=== PATIENT | male | born 1965 | race American Indian/Alaskan Native ===

== ENCOUNTER 2017-03-15 08:15 | Emergency (ER) | payer OTHER ==
[2017-03-15 08:23] VITALS: BMI 29.0
[2017-03-15 08:25] VITALS: BP 117/78; PULSE 69; RESP 19; TEMP 98.5; O2SAT 99
--- NOTE | 2017-03-15 09:19 | ED PDOC ---
HPI: CCC, URI, Sore Throat Time Seen by Provider: 03/15/17 08:41 Chief Complaint (Nursing): ENT Problem Chief Complaint (Provider): sore throat History Per: Patient History/Exam Limitations: no limitations Have you had recent travel within the past 21 days to any of the following countries: [place], [place], [place] or [place]?: No Onset/Duration Of Symptoms: Days (x2) Additional Complaint(s): Ramesh Felton is a 52 year old male, with a previous medical history of hypertension, who presents to the ED with complaints of left sided throat pain which radiates to his left ear ongoing for 2 days. Patient denies any shortness of breath, fever or swelling. PMD: none provided Past Medical History Reviewed: Historical Data, Nursing Documentation, Vital Signs Vital Signs: Last Vital Signs Temp 98.5 F 03/15/17 08:23 Pulse 69 03/15/17 08:23 Resp 19 03/15/17 08:23 BP 117/78 03/15/17 08:23 Pulse Ox 99 03/15/17 09:21 - Medical History PMH: HTN - Surgical History Surgical History: Appendectomy - Family History Family History: States: Unknown Family Hx - Social History Current smoker - smoking cessation education provided: Yes - Home Medications Home Medications: Ambulatory Orders Medication Instructions Recorded Amoxicillin 1,000 mg PO DAILY #6 tablet 03/15/17 Naproxen [Naprosyn] 500 mg PO BID PRN #15 tablet 03/15/17 - Allergies Allergies/Adverse Reactions: Allergies Allergy/AdvReac Type Severity Reaction Status Date / Time No Known Allergies Allergy Verified 03/15/17 08:35 Review of Systems ROS Statement: Except As Marked, All Systems Reviewed And Found Negative Constitutional: Negative for: Fever ENT: Positive for: Ear Pain (left ), Throat Pain. Negative for: Throat Swelling Physical Exam - Reviewed Nursing Documentation Reviewed: Yes Vital Signs Reviewed: Yes - Physical Exam Appears: Positive for: Well, Non-toxic, No Acute Distress Head Exam: Positive for: ATRAUMATIC, NORMAL INSPECTION, NORMOCEPHALIC Skin: Positive for: Normal Color, Warm, Dry ENT: Positive for: Pharyngeal Erythema, Tonsillar Exudate (L), Tonsillar Swelling (Minimal L), Other (uvula midline ) Neck: Positive for: Normal, Painless ROM, Supple Cardiovascular/Chest: Positive for: Regular Rate, Rhythm Respiratory: Positive for: CNT, Normal Breath Sounds Neurologic/Psych: Positive for: Alert - ECG O2 Sat by Pulse Oximetry: 99 (RA) Pulse Ox Interpretation: Normal Medical Decision Making Medical Decision Making: Initial Impression: WESTON Bateman Initial Plan: * Rapid strep * Motrin 600 mg PO * reevaluation Scribe Attestation: Documented by Rosie Quigley, acting as a scribe for Rosie Vizcarra MD. Provider Scribe Attestation: All medical record entries made by the Scribe were at my direction and personally dictated by me. I have reviewed the chart and agree that the record accurately reflects my personal performance of the history, physical exam, medical decision making, and the department course for this patient. I have also personally directed, reviewed, and agree with the discharge instructions and disposition. Disposition - Clinical Impression Clinical Impression: Pharyngitis - Patient ED Disposition Is Patient to be Admitted: No - Disposition Referrals: [facility] [Outside] Disposition: Routine/Home Disposition Time: 09:49 Condition: STABLE Prescriptions: Amoxicillin 1,000 mg PO DAILY #6 tablet Naproxen [Naprosyn] 500 mg PO BID PRN #15 tablet PRN Reason: Pain, Moderate (4-7) Instructions: Pharyngitis (ED)
== END 2017-03-15 10:10 | disposition home or self-care (01) ==
LOC: MERGE 08:15 → H.ER 08:15
DX: J02.9 Acute pharyngitis, unspecified (principal); I10 Essential (primary) hypertension

== ENCOUNTER 2017-08-10 09:10 | Emergency (ER) | payer OTHER ==
[2017-08-10 09:23] VITALS: BP 136/78; PULSE 83; RESP 20; TEMP 97.7; BMI 35.0
[2017-08-10 10:07] VITALS: O2SAT 98
--- NOTE | 2017-08-10 11:21 | ED PDOC ---
HPI: General Adult Time Seen by Provider: 08/10/17 10:15 Chief Complaint (Nursing): Lower Extremity Problem/Injury History Per: Patient Additional Complaint(s): Pt. states earlier today while at work he twisted his R ankle coming off a curb. Reports pain is localized to the inner portion of the ankle and worsens with dorsiflexion of the ankle. Denies numbness, tingling, other injury. Past Medical History Reviewed: Historical Data, Nursing Documentation, Vital Signs Vital Signs: Last Vital Signs Temp 97.7 F 08/10/17 09:22 Pulse 83 08/10/17 09:22 Resp 20 08/10/17 09:22 BP 136/78 08/10/17 09:22 Pulse Ox 98 08/10/17 10:05 - Medical History PMH: HTN - Surgical History Surgical History: Appendectomy - Family History Family History: States: Diabetes, Hypertension - Home Medications Home Medications: Ambulatory Orders Medication Instructions Recorded Naproxen 500 mg PO Q12 #20 tab 07/20/14 Acetaminophen [Tylenol] 325 mg PO Q6 #20 tablet 11/15/15 Albuterol HFA [Ventolin HFA 90 0.09 mg IH Q4 #1 puff 11/15/15 mcg/actuation (8 g)] Azithromycin [Zithromax] 250 mg PO DAILY #6 tab 11/15/15 Guaifenesin/Pseudoephedrne HCl 1 each PO BID #20 tab.er.12h 11/15/15 [Mucinex D ER Tablet] Azithromycin [Zithromax] 250 mg PO DAILY #6 tablet 02/24/16 Ibuprofen 600 mg PO Q6 PRN #20 tablet 03/25/16 Cyclobenzaprine [Cyclobenzaprine 10 mg PO TID #15 tab 10/17/16 HCl] Amoxicillin 1,000 mg PO DAILY #6 tablet 03/15/17 Naproxen [Naprosyn] 500 mg PO BID PRN #15 tablet 03/15/17 - Allergies Allergies/Adverse Reactions: Allergies Allergy/AdvReac Type Severity Reaction Status Date / Time beans Allergy ANAPHYLAXIS Uncoded 10/17/16 04:02 Review of Systems ROS Statement: Except As Marked, All Systems Reviewed And Found Negative Physical Exam - Physical Exam Appears: Positive for: Well, Non-toxic, No Acute Distress Skin: Positive for: Normal Color, Warm. Negative for: Rash Pulses-Dorsalis Pedis (L): 2+ Pulses-Dorsalis Pedis (R): 2+ Extremity: Positive for: Other (R medial malleolus with mild tenderness and swelling; R ankle without deformity; no foot, knee, or leg tenderness, swelling. ) Neurologic/Psych: Positive for: Alert, Oriented - ECG O2 Sat by Pulse Oximetry: 98 - Radiology X-Ray: Interpreted by Me (R ankle x-ray ) X-Ray Interpretation: No Acute Disease - Progress ED Course And Treament: Pt. offered analgesics but refused. R ankle x-ray ordered. 1122 R ankle immobilized in ankle aircast splint by mine technician. Crutches provided. Work note will be given. Disposition - Clinical Impression Clinical Impression: Ankle injury - Patient ED Disposition Is Patient to be Admitted: No - Disposition Referrals: Podiatry Clinic [Outside] Disposition: Routine/Home Disposition Time: 11:24 Condition: STABLE Additional Instructions: Take Tylenol or Motrin at home for pain. Follow up with podiatry for further evaluation. Instructions: Ankle Sprain (ED), Ankle Stirrup Splint (ED), Crutch Instructions (ED), RICE Therapy (ED) Forms: [facility] (Telugu), [facility] ED School/Work Excuse Print Language: TRISTANIAN
[2017-08-10] MEDS ORDERED: Naproxen 500 MG TAB PO ONE ×2 (12:02→12:03)
--- NOTE | 2017-08-10 13:02 | RAD ---
PROCEDURE: Right Ankle Radiographs. HISTORY: trauma COMPARISON: None FINDINGS: BONES: There is no acute displaced fracture or bone destruction. Bone alignment is normal. There is periarticular bone demineralization. 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 There is mild degenerative osteoarthrosis in the tibiotalar joint. SOFT TISSUES: Normal. OTHER FINDINGS: None. IMPRESSION: No acute displaced fracture or dislocation.
== END 2017-08-10 12:15 | disposition home or self-care (01) ==
LOC: H.ER 09:10
DX: S99.911A Unspecified injury of right ankle, initial encounter (principal); X50.9XXA Other and unspecified overexertion or strenuous movements or postures, initial encounter; Y92.89 Other specified places as the place of occurrence of the external cause; I10 Essential (primary) hypertension

== ENCOUNTER 2017-12-30 22:49 | Emergency (ER) | payer MEDICAID, OTHER ==
[2017-12-30 22:49] VITALS: BMI 35.0
[2017-12-30 22:55] VITALS: RESP 18; O2SAT 98
--- NOTE | 2017-12-30 23:14 | ED PDOC ---
Lower Extremity Pain/Injury Time Seen by Provider: 12/30/17 23:00 Chief Complaint (Nursing): Lower Extremity Problem/Injury History Per: Patient Additional Complaint(s): 52-year-old male with past medical history of asthma, emergency room complaining of atraumatic pain to the dorsal aspect of his left low which started 2 days ago. 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 He recalls no trauma or injury, reports no fever, chest pain, shortness of breath, swelling, recent travel, history of DVT, recent hospitalization or surgery. Otherwise has no additional complaints. Past Medical History Vital Signs: Last Vital Signs Temp 98.6 F 12/30/17 22:51 Pulse 103 H 12/30/17 22:51 Resp 18 12/30/17 22:51 BP 158/93 H 12/30/17 22:51 Pulse Ox 98 12/30/17 22:51 - Medical History PMH: HTN - Surgical History Surgical History: Appendectomy - Family History Family History: States: No Known Family Hx, Diabetes, Hypertension - Home Medications Home Medications: Ambulatory Orders Medication Instructions Recorded Naproxen 500 mg PO Q12 #20 tab 07/20/14 Acetaminophen [Tylenol] 325 mg PO Q6 #20 tablet 11/15/15 Albuterol HFA [Ventolin HFA 90 0.09 mg IH Q4 #1 puff 11/15/15 mcg/actuation (8 g)] Azithromycin [Zithromax] 250 mg PO DAILY #6 tab 11/15/15 Guaifenesin/Pseudoephedrne HCl 1 each PO BID #20 tab.er.12h 11/15/15 [Mucinex D ER Tablet] Azithromycin [Zithromax] 250 mg PO DAILY #6 tablet 02/24/16 Ibuprofen 600 mg PO Q6 PRN #20 tablet 03/25/16 Cyclobenzaprine [Cyclobenzaprine 10 mg PO TID #15 tab 10/17/16 HCl] Amoxicillin 1,000 mg PO DAILY #6 tablet 03/15/17 Naproxen [Naprosyn] 500 mg PO BID PRN #15 tablet 03/15/17 - Allergies Allergies/Adverse Reactions: Allergies Allergy/AdvReac Type Severity Reaction Status Date / Time beans Allergy ANAPHYLAXIS Uncoded 10/17/16 04:02 Review of Systems Constitutional: Negative for: Fever, Weakness, Malaise Cardiovascular: Negative for: Chest Pain, Palpitations, Edema Respiratory: Positive for: Cough (started today), Wheezing (today). Negative for: Shortness of Breath Gastrointestinal: Negative for: Vomiting, Abdominal Pain, Diarrhea Genitourinary Male: Negative for: Dysuria, Frequency, Hematuria Musculoskeletal: Positive for: Leg Pain. Negative for: Neck Pain, Back Pain Skin: Negative for: Rash, Lesions, Jaundice Physical Exam - Physical Exam Comments: GENERAL APPEARANCE: Patient is awake, alert, oriented x 3, in mild painful distress. Speaking in full sentences, breathing easy and unlabored. SKIN: Warm, dry; (-) cyanosis. EYES: (-) conjunctival pallor. ENMT: Mucous membranes moist. Airway patent: (-) stridor. Pharynx: (-) swelling, (-) erythema. NECK: (-) tenderness, (-) stiffness, (-) lymphadenopathy. CHEST AND RESPIRATORY: (+) expiratory wheezing to the R lung; (-) rales, (-) rhonchi, (-) rub; breath sounds equal bilaterally. HEART AND CARDIOVASCULAR: (-) irregularity; (-) murmur, (-) gallop. ABDOMEN AND GI: Soft; (-) tenderness. EXTREMITIES: (+) tenderness to the dorsal aspect of the left lower leg, (+) FROM, (-) deformity, (-) edema, (+) distal pulses. NEURO AND PSYCH: Mental status as above; (-) focal findings. - ECG O2 Sat by Pulse Oximetry: 98 Medical Decision Making Medical Decision Making: Impression : L leg pain, r/o DVT, asthma exacerbation Plan: -- Labs -- IV -- XR L tib-fib -- Toradol IV -- Duonebs -- Reassess and disposition -- Doppler US LLE Patient went to US. Labs, XR and US results pending. Case endorsed to SOLA Smart at [phone] pending labs, XR, USm re-evaluation and final disposition. Disposition - Clinical Impression Clinical Impression: Asthma, Left leg pain - Patient ED Disposition Is Patient to be Admitted: Transfer of Care (Case endorsed to SOLA Smart pending labs, XR, USm re-evaluation and final disposition.) - Disposition Disposition: Transfer of Care Disposition Time: 00:00 Condition: UNKNOWN Forms: [facility] (Turkish) - PA / DIRECTOR OF DONOR RELATIONS / Resident Statement MD/DO has reviewed & agrees with the documentation as recorded.
--- NOTE | 2017-12-30 23:56 | ED PDOC ---
- Laboratory Results Result Diagrams: 12/30/17 00:10 12/30/17 00:10 - ECG O2 Sat by Pulse Oximetry: 98 (RA) Pulse Ox Interpretation: Normal Medical Decision Making Medical Decision Makin Case endorsed to continuity writer, Audra Smart PA-C, due to shift change. Pertinent details reviewed. Patient pending lab results, U/S results, XR results, re- evaluation, and further disposition. 0020 Patient returned from U/S without incident. 0025 US reviewed, radiology report follows EXAM: US Duplex Left Lower Extremity Veins CLINICAL HISTORY: 52 years old, male; Pain; Leg, lower; Left; Patient HX: Pain at below knee extends to prx-mid low area. Lt leg; Additional info: Pain, R/O dvt TECHNIQUE: Real-time duplex ultrasound scan of the left lower extremity veins integrating B -mode twodimensional vascular structure, Doppler spectral analysis, color flow Doppler imaging and compression. COMPARISON: No relevant prior studies available. FINDINGS: Deep veins: Unremarkable. No DVT in the visualized common femoral, femoral, proximal deep femoral or popliteal veins. The veins demonstrate normal color flow, are normally compressible, with normal phasic flow and/or augmentation response. Superficial veins: Unremarkable. No thrombus in the visualized great saphenous vein. Soft tissues: Adjacent complex fluid collections medial aspect left popliteal knee and calf. Collections measure 5.4 x 1.6 x 5.4 and 3.1 x 1.0 x 1.8 CM. IMPRESSION: No evidence of venous thrombosis. Complex soft tissue fluid collections, as above. Thank you for allowing us to participate in the care of your patient. Dictated and Authenticated by: Ilya Madden MD 12/31/2017 12:06 AM Eastern Time ([place] & [place]) 0040 XR Tib/Fib: (-) fracture (+) arthritic changes as read by Bing ONEAL Patient notified a Radiologist will review the ED reading if any change in treatment is needed we will contact you. 0115 On re-evaluation, patient reports improvement of symptoms, denies any SOB at present. On exam, patient remains AAOx3, in no acute distress. Lungs clear to auscultation, cardiac RRR, abdomen soft, non-tender, repeat neuro exam shows no focal findings. Repeat BP:141/85, Repeat HR: 77, Repeat O2: 98% RA. Lei bandage applied to knee. NV intact after placement. RICE encouraged. Lab results reviewed, Diagnostic results d/w the patient in great detail. Diagnosis of acute knee pain, wheezing d/w the patient. Based on history, exam and diagnostic results, plan will be for outpatient follow up. Patient instructed to follow-up with pmd / referral provided / the clinic in 1- 2 days without fail. Advised to take medication as prescribed. Return to the emergency room at any time for any new or worsening symptoms. Patient states he fully agrees with and understands discharge instructions. States that he agrees with the plan and disposition. Verbalized and repeated discharge instructions and plan. I have given the patient opportunity to ask any additional questions. Disposition Counseled Patient/Family Regarding: Studies Performed, Diagnosis, Need For Followup, Rx Given - Clinical Impression Clinical Impression: Asthma, Left leg pain, Wheezing, Knee pain - POA Present On Arrival: None - Disposition Referrals: Lorraine Coronel MD [Staff Provider] - Disposition: Routine/Home Disposition Time: 01:14 Condition: FAIR Prescriptions: Albuterol HFA [Ventolin HFA 90 mcg/actuation (8 g)] 1 puff IH Q4 #1 inhaler Meloxicam [Mobic] 15 mg PO DAILY #14 tab Instructions: Asthma in Adults, Muscle and Bone Pain (DC), Knee Pain Forms: [facility] (Vietnamese) Print Language: SINHALA
[2017-12-31 00:32] LABS: BASO # 0.1 K/uL (0.0-0.2); BASO % 1.2 % (0.0-2.0); EOS # 0.3 K/uL (0.0-0.7); EOS % 5.7 % (0.0-4.0); HEMOGLOBIN 14.1 g/dL (12.0-18.0); LYMPH # 2.4 K/uL (1.0-4.3); LYMPH % 39.8 % (20.0-40.0); MEAN CELL VOLUME 79.9 fl (80.0-94.0); MEAN CORPUSCULAR HEMOGLOBIN 26.6 pg (27.0-31.0); MEAN CORPUSCULAR HGB CONC 33.3 g/dL (33.0-37.0); MEAN PLATELET VOLUME 7.7 fl (7.2-11.7); MONO # 0.5 K/uL (0.0-0.8); MONO % 9.1 % (0.0-10.0); NEUT # 2.7 K/uL (1.8-7.0); NEUT % 44.2 % (50.0-75.0); NRBC % 0.1 % (0.0-0.0); RBC 5.31 Mil/uL (4.40-5.90); RED CELL DISTRIBUTION WIDTH 15.6 % (11.5-14.5)
[2017-12-31 00:41] LABS: ALB/GLOB RATIO 0.9 (1.0-2.1); ALBUMIN 3.6 g/dL (3.5-5.0); ALT/SGPT 28 U/L (21-72); AST/SGOT 29 U/L (17-59); BLOOD UREA NITROGEN 8 mg/dl (9-20); GFR AFRICAN-AMERICAN > 60; GFR NON-AFRICAN AMERICAN > 60
[2017-12-31] MEDS ORDERED: Albuterol-Ipratrop 3 mg / 0.5 (3 ml) UD ONE (00:41)
[2017-12-31] MEDS: Albuterol-Ipratrop 3 mg / 0.5 (3 ml) UD IH SCH ×2 (00:43→00:58)
[2017-12-31 01:23] VITALS: BP 141/85; PULSE 77; TEMP 98.2
--- NOTE | 2017-12-31 09:37 | US ---
HISTORY: pain, r/o dvt . PRIORS: None. FINDINGS: 2-D, color and duplex Doppler analysis of the lower extremity venous circulation using routine protocol from the femoral veins through the popliteal veins. Venous compressibility: Normal. Flow and augmentation patterns: Normal. Visualized veins upper third of calf: Normal. Vicente cyst: None. Other: Adjacent complex fluid collections in the medial aspect of the left knee and measuring 5.4 x 1.6 x 5.4 cm and 3.1 x 1.0 x 1.8 cm. IMPRESSION: No sonographic or Doppler evidence for DVT in left lower extremity. Complex soft tissue fluid collections as described above.
--- NOTE | 2017-12-31 09:38 | RAD ---
PROCEDURE: Radiographs of the left tibia and fibula. HISTORY: pain COMPARISON: None available. TECHNIQUE: Frontal and lateral views obtained. FINDINGS: BONES: No acute fracture. JOINT SPACES: Degenerative changes. OTHER FINDINGS: Pes planus. IMPRESSION: No demonstrated fracture dislocation. Degenerative changes.
== END 2017-12-31 02:19 | disposition home or self-care (01) ==
LOC: H.ER 22:49
DX: J45.909 Unspecified asthma, uncomplicated (principal); R06.2 Wheezing; M79.605 Pain in left leg
CPT/HCPCS: 73590; 80053; 85025; 93971; 96374; 99285; J1885

== ENCOUNTER 2018-02-04 04:30 | Emergency (ER) | payer MEDICAID ==
[2018-02-04 04:47] VITALS: BMI 44.4
[2018-02-04 04:50] VITALS: TEMP 98.1
[2018-02-04 06:10] LABS: BASO # 0.1 K/uL (0.0-0.2); BASO % 1.2 % (0.0-2.0); EOS # 0.4 K/uL (0.0-0.7); EOS % 6.5 % (0.0-4.0); HEMOGLOBIN 14.5 g/dL (12.0-18.0); LYMPH # 2.5 K/uL (1.0-4.3); LYMPH % 45.4 % (20.0-40.0); MEAN CELL VOLUME 79.8 fl (80.0-94.0); MEAN CORPUSCULAR HEMOGLOBIN 26.1 pg (27.0-31.0); MEAN CORPUSCULAR HGB CONC 32.7 g/dL (33.0-37.0); MEAN PLATELET VOLUME 7.6 fl (7.2-11.7); MONO # 0.7 K/uL (0.0-0.8); NEUT % 34.9 % (50.0-75.0); NRBC % 0.1 % (0.0-0.0); RBC 5.54 Mil/uL (4.40-5.90); RED CELL DISTRIBUTION WIDTH 15.7 % (11.5-14.5); WHITE BLOOD COUNT 5.6 K/uL (4.8-10.8)
[2018-02-04 06:21] LABS: CALCIUM 8.8 mg/dL (8.4-10.2); GFR AFRICAN-AMERICAN > 60; GFR NON-AFRICAN AMERICAN > 60
[2018-02-04 06:22] LABS: BLOOD UREA NITROGEN 8 mg/dl (9-20)
--- NOTE | 2018-02-04 06:22 | ED PDOC ---
Lower Extremity Pain/Injury Time Seen by Provider: 02/04/18 05:25 Chief Complaint (Nursing): Lower Extremity Problem/Injury History Per: Patient History/Exam Limitations: no limitations Onset/Duration Of Symptoms: Days (x 2-3) Current Symptoms Are (Timing): Still Present Additional Complaint(s): 52-year-old, with a history of Arthritis, presents with left leg pain and chest pain. Patient states lower leg pain is constant. Reports intermittent chest pain. This morning patient reports he woke up with chest pain. Reports pain often in his left knee. PMD: No Provider. Past Medical History Reviewed: Historical Data, Nursing Documentation, Vital Signs Vital Signs: Last Vital Signs Temp 98.1 F 02/04/18 04:47 Pulse 76 02/04/18 04:47 Resp 16 02/04/18 04:47 BP 152/107 H 02/04/18 04:47 Pulse Ox 98 02/04/18 04:47 - Medical History PMH: HTN Denies: Arthritis, Chronic Kidney Disease - Surgical History Surgical History: Appendectomy - Family History Family History: States: Diabetes, Hypertension - Home Medications Home Medications: Ambulatory Orders Medication Instructions Recorded Naproxen 500 mg PO Q12 #20 tab 07/20/14 Acetaminophen [Tylenol] 325 mg PO Q6 #20 tablet 11/15/15 Albuterol HFA [Ventolin HFA 90 0.09 mg IH Q4 #1 puff 11/15/15 mcg/actuation (8 g)] Azithromycin [Zithromax] 250 mg PO DAILY #6 tab 11/15/15 Guaifenesin/Pseudoephedrne HCl 1 each PO BID #20 tab.er.12h 11/15/15 [Mucinex D ER Tablet] Azithromycin [Zithromax] 250 mg PO DAILY #6 tablet 02/24/16 Ibuprofen 600 mg PO Q6 PRN #20 tablet 03/25/16 Cyclobenzaprine [Cyclobenzaprine 10 mg PO TID #15 tab 10/17/16 HCl] Amoxicillin 1,000 mg PO DAILY #6 tablet 03/15/17 Naproxen [Naprosyn] 500 mg PO BID PRN #15 tablet 03/15/17 Albuterol HFA [Ventolin HFA 90 1 puff IH Q4 #1 inhaler 12/31/17 mcg/actuation (8 g)] Meloxicam [Mobic] 15 mg PO DAILY #14 tab 12/31/17 - Allergies Allergies/Adverse Reactions: Allergies Allergy/AdvReac Type Severity Reaction Status Date / Time beans Allergy ANAPHYLAXIS Uncoded 02/04/18 04:47 Physical Exam - Reviewed Nursing Documentation Reviewed: Yes Vital Signs Reviewed: Yes - Physical Exam Appears: Positive for: Non-toxic Head Exam: Positive for: ATRAUMATIC, NORMAL INSPECTION, NORMOCEPHALIC Skin: Positive for: Normal Color, Warm, Dry Eye Exam: Positive for: EOMI, Normal appearance, PERRL ENT: Positive for: Normal ENT Inspection Neck: Positive for: Normal Cardiovascular/Chest: Positive for: Regular Rate, Rhythm Respiratory: Positive for: Normal Breath Sounds. Negative for: Respiratory Distress Gastrointestinal/Abdominal: Positive for: Normal Exam Back: Positive for: Normal Inspection Extremity: Positive for: Pedal Edema (swelling to left lower leg noted, mild tenderness noted to palpation) Neurologic/Psych: Positive for: Alert, Oriented (x 3) - Laboratory Results Result Diagrams: 02/04/18 06:07 02/04/18 06:07 - ECG O2 Sat by Pulse Oximetry: 98 (RA) Pulse Ox Interpretation: Normal Medical Decision Making Medical Decision Making: Time: 05:41 Impression(s): Leg Pain and Leg Swelling, Chest Pain Differentials include, but not limited to: DVT, Arthritis, ACS. CAD, GERD Plan: - EKG - BMP - Troponin I - CBC (with differentials) - Duplex Lower Extremity Vein Left Ultrasound Scribe Attestation: Documented by Rajat Ramey, acting as a scribe for Lilian Christian MD. Provider Scribe Attestation: All medical record entries made by the Scribe were at my direction and personally dictated by me. I have reviewed the chart and agree that the record accurately reflects my personal performance of the history, physical exam, medical decision making, and the department course for this patient. I have also personally directed, reviewed, and agree with the discharge instructions and disposition. Disposition - Clinical Impression Clinical Impression: Leg pain, Atypical chest pain - Patient ED Disposition Is Patient to be Admitted: No Doctor Will See Patient In The: Office Counseled Patient/Family Regarding: Studies Performed, Diagnosis - Disposition Disposition: Transfer of Care Disposition Time: 07:00 Condition: STABLE Instructions: Chest Pain That Is Not Caused by the Heart (DC), Lower Extremity Exercises Seated Forms: [employer] (Guatemalan), [facility] ED School/Work Excuse Patient Signed Over To: Neeta De Leon
[2018-02-04 10:04] VITALS: BP 147/81; PULSE 75; RESP 18
--- NOTE | 2018-02-04 10:26 | ED PDOC ---
- Laboratory Results Result Diagrams: 02/04/18 06:07 02/04/18 06:07 - ECG O2 Sat by Pulse Oximetry: 99 (RA) Pulse Ox Interpretation: Normal Medical Decision Making Medical Decision Making: Time: 07 -- Patient signed to me by Dr. Christian, pending extremity ultrasound. Time: 1033 EXTREMITY ULTRASOUND RESULTS FINDINGS: COMMON FEMORAL VEIN: Unremarkable. SUPERFICIAL FEMORAL VEIN: Unremarkable. POPLITEAL VEIN: Unremarkable. POSTERIOR TIBIAL VEIN: Unremarkable. OTHER FINDINGS: None. IMPRESSION: No evidence of deep venous thrombosis in the left lower extremity. Scribe Attestation: Documented by Hayley Vyas, acting as a scribe forDr. Torrey MD. Provider Scribe Attestation: All medical record entries made by the Scribe were at my direction and personally dictated by me. I have reviewed the chart and agree that the record accurately reflects my personal performance of the history, physical exam, medical decision making, and the department course for this patient. I have also personally directed, reviewed, and agree with the discharge instructions and disposition. 11.00 - US negative. Will discharge as planned. Disposition - Disposition Forms: [employer] [facility] [employer] (Brazilian)
--- NOTE | 2018-02-04 10:36 | US ---
PROCEDURE: Left lower extremity venous duplex Doppler. HISTORY: COMPARISON: Lower extremity ultrasound dated 12/30/2017. TECHNIQUE: Common femoral, superficial femoral, popliteal and posterior tibial veins were evaluated. Flow was assessed with color Doppler, compressibility, assessment of phasic flow and augmentation response. FINDINGS: COMMON FEMORAL VEIN: Unremarkable. SUPERFICIAL FEMORAL VEIN: Unremarkable. POPLITEAL VEIN: Unremarkable. POSTERIOR TIBIAL VEIN: Unremarkable. OTHER FINDINGS: None. IMPRESSION: No evidence of deep venous thrombosis in the left ower extremity.
--- NOTE | 2018-02-04 13:00 | CARD ---
APPROVED REPORT EKG Measurement Heart [id number] <Conclusion> Normal sinus rhythm ST elevation, probably due to early repolarization Borderline ECG
[2018-02-04 23:04] VITALS: O2SAT 98
== END 2018-02-04 11:30 | disposition home or self-care (01) ==
LOC: H.ER 04:30
DX: R07.89 Other chest pain (principal); M19.90 Unspecified osteoarthritis, unspecified site; I10 Essential (primary) hypertension; I25.10 Atherosclerotic heart disease of native coronary artery without angina pectoris; K21.9 Gastro-esophageal reflux disease without esophagitis

== ENCOUNTER 2018-05-24 11:29 | Emergency (ER) | payer SELFPAY ==
[2018-05-24 11:36] VITALS: BMI 37.9
[2018-05-24 12:46] LABS: BASO # 0.1 K/uL (0.0-0.2); BASO % 0.9 % (0.0-2.0); EOS # 0.3 K/uL (0.0-0.7); HEMOGLOBIN 14.7 g/dL (12.0-18.0); LYMPH # 2.5 K/uL (1.0-4.3); LYMPH % 37.1 % (20.0-40.0); MEAN CORPUSCULAR HEMOGLOBIN 26.7 pg (27.0-31.0); MEAN CORPUSCULAR HGB CONC 33.4 g/dL (33.0-37.0); MEAN PLATELET VOLUME 7.6 fl (7.2-11.7); MONO # 0.6 K/uL (0.0-0.8); MONO % 9.4 % (0.0-10.0); NEUT # 3.2 K/uL (1.8-7.0); NEUT % 48.6 % (50.0-75.0); NRBC % 0.1 % (0.0-0.0); RBC 5.49 Mil/uL (4.40-5.90); RED CELL DISTRIBUTION WIDTH 16.7 % (11.5-14.5); WHITE BLOOD COUNT 6.6 K/uL (4.8-10.8)
[2018-05-24 13:00] LABS: ALT/SGPT 31 U/L (21-72); AST/SGOT 24 U/L (17-59); BLOOD UREA NITROGEN 8 mg/dl (9-20); CALCIUM 9.3 mg/dL (8.4-10.2); GFR NON-AFRICAN AMERICAN > 60; LIPASE 88 U/L (23-300)
--- NOTE | 2018-05-24 13:00 | ED PDOC ---
Lower Extremity Pain/Injury Time Seen by Provider: 05/24/18 11:56 Chief Complaint (Nursing): Lower Extremity Problem/Injury Chief Complaint (Provider): Lower Extremity Problem/Injury History Per: Patient History/Exam Limitations: no limitations Onset/Duration Of Symptoms: Days Current Symptoms Are (Timing): Still Present Additional Complaint(s): 53 y/o male with a PMHx of HTN and arthritis presents to the ED complaining of left leg pain and swelling, onset approximately 3 weeks ago. Patient states pain is persistent but worsened yesterday thus prompting today's visit. Patient states he is on his feet a lot while at work and has had a lot of swelling in the past. Patient reports of having an old injury to the left low and a fracture that was repaired to the left ankle in the past. In addition, patient is complaining of epigastric pain associated with abdominal distention for about one month. Patient reports epigastric pain worsened yesterday and was associated with 1 episode of non-bloody, non-bilious vomiting. Denies chest pain , shortness of breath, fever, syncope, dizziness, rectal bleeding and urinary symptoms. PMD: No Provider Past Medical History Reviewed: Historical Data, Nursing Documentation, Vital Signs Vital Signs: Last Vital Signs Temp 98.5 F 05/24/18 11:58 Pulse 77 05/24/18 11:58 Resp 20 05/24/18 11:58 BP 136/80 05/24/18 11:58 Pulse Ox 97 05/24/18 11:58 - Medical History PMH: Arthritis, HTN Denies: Chronic Kidney Disease - Surgical History Surgical History: Appendectomy Other surgeries: Left ankle surgery - Family History Family History: States: Diabetes, Hypertension - Home Medications Home Medications: Ambulatory Orders Medication Instructions Recorded Famotidine [Pepcid] 20 mg PO DAILY #14 tab 05/24/18 - Allergies Allergies/Adverse Reactions: Allergies Allergy/AdvReac Type Severity Reaction Status Date / Time beans Allergy ANAPHYLAXIS Uncoded 02/04/18 04:47 Review of Systems ROS Statement: Except As Marked, All Systems Reviewed And Found Negative Constitutional: Negative for: Fever Cardiovascular: Negative for: Chest Pain Respiratory: Negative for: Shortness of Breath Genitourinary Male: Negative for: Other (rectal bleeding) Musculoskeletal: Positive for: Leg Pain (and swelling) Neurological: Negative for: Dizziness, Other (Syncope) Physical Exam - Reviewed Nursing Documentation Reviewed: Yes Vital Signs Reviewed: Yes - Physical Exam Appears: Positive for: Non-toxic, No Acute Distress (Comfortable) Head Exam: Positive for: ATRAUMATIC, NORMOCEPHALIC Skin: Positive for: Normal Color, Warm, Dry Eye Exam: Positive for: Normal appearance, EOMI, PERRL Neck: Positive for: Normal, Painless ROM Cardiovascular/Chest: Positive for: Regular Rate, Rhythm. Negative for: Murmur Respiratory: Positive for: Normal Breath Sounds. Negative for: Respiratory Distress Gastrointestinal/Abdominal: Positive for: Normal Exam, Soft, Distended. Negative for: Tenderness Back: Positive for: Normal Inspection. Negative for: L CVA Tenderness, R CVA Tenderness, Vertebral Tenderness Extremity: Positive for: Tenderness (to the anterior aspect of the left lower leg), Swelling (Left lower leg ). Negative for: Pedal Edema, Deformity Neurologic/Psych: Positive for: Alert, Oriented. Negative for: Motor/Sensory Deficits - Laboratory Results Result Diagrams: 05/24/18 12:43 05/24/18 12:43 - ECG O2 Sat by Pulse Oximetry: 97 (RA) Pulse Ox Interpretation: Normal - Progress Re-evaluation Time: 16:54 Condition: Re-examined, Improved Medical Decision Making Medical Decision Making: Time: 1304 Impression: Left leg pain and swelling, abdomen distention and pain Differentials include DVT, dependant edema Rule Out CHF, gastritis, pancreatitis, small bowel obstruction, abdominal hernia Plan: -- CT Abd/Pelvis IV Contrast -- EKG -- B-Type Natrituretic -- CMP -- Lipase -- Troponin I -- CBC with differentials -- Pepcid 20 mg IVP -- Toradol 30 mg IVP -- Tibia Fibula Left XR -- US Duplex Lower Extremity Time: 1400 US RESULTS FINDINGS: 2-D, color and duplex Doppler analysis of the lower extremity venous circulation using routine protocol from the femoral veins through the popliteal veins. Venous compressibility: Normal. Flow and augmentation patterns: Normal. Visualized veins upper third of calf: Normal. Vicente cyst: None. There is subcutaneous edema in the ankle. IMPRESSION: No sonographic or Doppler evidence for DVT in left lower extremity. Time: 1413 XR RESULTS FINDINGS: BONES: No fracture or destructive lesion. JOINT SPACES: Moderate tricompartmental degenerative osteoarthrosis in the knee worse in the medial compartment. OTHER FINDINGS: None. IMPRESSION: No acute fracture or dislocation. Moderate tricompartmental degenerative osteoarthrosis in the knee joint, worse in the medial compartment. Time: 1535 CT ABD/PELVIS RESULTS FINDINGS: LOWER THORAX: The visualized lungs are clear. LIVER: Mild hepatomegaly and fatty liver. Is small low-attenuation lesion in the hepatic dome is too small to characterize by CT criteria. No gross lesion or ductal dilatation. GALLBLADDER AND BILE DUCTS: No calcified gallstones. PANCREAS: Normal in size with homogeneous enhancement. No gross lesion or ductal dilatation. SPLEEN: Normal in size and appearance. ADRENALS: There is a 3.0 cm adenoma in the right adrenal gland and 3.4 cm adenoma in the left adrenal gland. KIDNEYS AND URETERS: Normal in size with homogeneous enhancement. No hydronephrosis. No solid mass. VASCULATURE: No aortic aneurysm. BOWEL: The small bowel loops are normal in caliber. The colon is unremarkable APPENDIX: Normal appendix. PERITONEUM: No free fluid. No free air. LYMPH NODES: No enlarged lymph nodes. BLADDER: The urinary bladder is distended and there is apparent mild circumferential mural thickening. REPRODUCTIVE: The prostate gland is normal in size. BONES: No acute fracture. There is diffuse bone demineralization and multilevel degenerative changes in the spine. OTHER FINDINGS: There is a small sliding hiatal hernia. There is a small fat containing umbilical hernia. IMPRESSION: No acute abdominal or pelvic abnormality. Solitary benign adenomas in each adrenal gland. Apparent mild mural thickening of the urinary bladder wall is nonspecific and could be related to underdistention however cystitis cannot be excluded. Please correlate with urine analysis. Hepatic steatosis. Small sliding hiatal hernia. Scribe Attestation: Documented by Hayley Vyas acting as a scribe for Dr. Lilian Christian MD. Provider Scribe Attestation: All medical record entries made by the Scribe were at my direction and personally dictated by me. I have reviewed the chart and agree that the record accurately reflects my personal performance of the history, physical exam, medical decision making, and the department course for this patient. I have also personally directed, reviewed, and agree with the discharge instructions and disposition. Disposition - Clinical Impression Clinical Impression: Left leg swelling, Abdominal pain, Hiatal hernia, Steatosis of liver - Patient ED Disposition Is Patient to be Admitted: No Doctor Will See Patient In The: Office Counseled Patient/Family Regarding: Studies Performed, Diagnosis, Need For Followup - Disposition Referrals: [facility] [Outside] Disposition: Routine/Home Disposition Time: 16:55 Condition: GOOD Additional Instructions: MIRNA HEIN, thank you for letting us take care of you today. Your provider was Lilian Christian MD and you were treated for LT LEG SWELLING,STOMACH PAIN. The emergency medical care you received today was directed at your acute symptoms. If you were prescribed any medication, please fill it and take as directed. It may take several days for your symptoms to resolve. Return to the Emergency Department if your symptoms worsen, do not improve, or if you have any other problems. Please contact your doctor or call one of the physicians/clinics you have been referred to that are listed on the Patient Visit Information form that is included in your discharge packet. Bring any paperwork you were given at discharge with you along with any medications you are taking to your follow up visit. Our treatment cannot replace ongoing medical care by a primary care provider outside of the emergency department. Thank you for allowing the [facility] team to be part of your care today. If you had an X-Ray or CT scan: A Radiologist will review the ED reading if any change in treatment is needed we will contact you. If you had a blood, urine, or wound culture: It will take several days for the results, if any change in treatment is needed we will contact you. If you had an STI test: It will take 48 hours for the results. Please call after 1 week if you have not heard back. Prescriptions: Famotidine [Pepcid] 20 mg PO DAILY #14 tab Instructions: Hiatal Hernia, Stomach Ache and Stomach Upset, Nonalcoholic Fatty Liver Disease (DC), Dependent Edema (DC)
[2018-05-24 13:07] LABS: B-TYPE NATRIURETIC PEPTIDE 50.5 pg/ml (0-900)
--- NOTE | 2018-05-24 14:02 | US ---
Date of service: 05/24/2018 HISTORY: Left leg pain and swelling . PRIORS: None. FINDINGS: 2-D, color and duplex Doppler analysis of the lower extremity venous circulation using routine protocol from the femoral veins through the popliteal veins. Venous compressibility: Normal. Flow and augmentation patterns: Normal. Visualized veins upper third of calf: Normal. Vicente cyst: None. There is subcutaneous edema in the ankle. IMPRESSION: No sonographic or Doppler evidence for DVT in left lower extremity.
--- NOTE | 2018-05-24 14:04 | RAD ---
Date of service: 05/24/2018 PROCEDURE: Radiographs of the left tibia and fibula. HISTORY: Left leg pain, old injury COMPARISON: None available. TECHNIQUE: Frontal and lateral views obtained. FINDINGS: BONES: No fracture or destructive lesion. JOINT SPACES: Moderate tricompartmental degenerative osteoarthrosis in the knee worse in the medial compartment. OTHER FINDINGS: None. IMPRESSION: No acute fracture or dislocation. Moderate tricompartmental degenerative osteoarthrosis in the knee joint, worse in the medial compartment.
[2018-05-24] MEDS ORDERED: Iohexol 300 100 ML IJ ONE (14:05)
[2018-05-24] MEDS ORDERED: Sodium Chloride 0.9% 50 ML IV ONE (14:05)
[2018-05-24 14:51] VITALS: RESP 19; TEMP 97
--- NOTE | 2018-05-24 15:37 | CT ---
Date of service: 05/24/2018 PROCEDURE: CT Abdomen and Pelvis with contrast HISTORY: epigastric pain vomiting COMPARISON: None. TECHNIQUE: CT scan of the abdomen and pelvis was performed after administration of intravenous contrast. Oral contrast was not administered. Coronal and sagittal reformatted images were obtained. Contrast dose: 96 cc Omnipaque Radiation dose: Total exam DLP = 875.01 mGy-cm. This CT exam was performed using one or more of the following dose reduction techniques: Automated exposure control, adjustment of the mA and/or kV according to patient size, and/or use of iterative reconstruction technique. FINDINGS: LOWER THORAX: The visualized lungs are clear. LIVER: Mild hepatomegaly and fatty liver. Is small low-attenuation lesion in the hepatic dome is too small to characterize by CT criteria. No gross lesion or ductal dilatation. GALLBLADDER AND BILE DUCTS: No calcified gallstones. PANCREAS: Normal in size with homogeneous enhancement. No gross lesion or ductal dilatation. SPLEEN: Normal in size and appearance. ADRENALS: There is a 3.0 cm adenoma in the right adrenal gland and 3.4 cm adenoma in the left adrenal gland. KIDNEYS AND URETERS: Normal in size with homogeneous enhancement. No hydronephrosis. No solid mass. VASCULATURE: No aortic aneurysm. BOWEL: The small bowel loops are normal in caliber. The colon is unremarkable APPENDIX: Normal appendix. PERITONEUM: No free fluid. No free air. LYMPH NODES: No enlarged lymph nodes. BLADDER: The urinary bladder is distended and there is apparent mild circumferential mural thickening. REPRODUCTIVE: The prostate gland is normal in size. BONES: No acute fracture. There is diffuse bone demineralization and multilevel degenerative changes in the spine. OTHER FINDINGS: There is a small sliding hiatal hernia. There is a small fat containing umbilical hernia. IMPRESSION: No acute abdominal or pelvic abnormality. Solitary benign adenomas in each adrenal gland. Apparent mild mural thickening of the urinary bladder wall is nonspecific and could be related to underdistention however cystitis cannot be excluded. Please correlate with urine analysis. Hepatic steatosis. Small sliding hiatal hernia.
[2018-05-24 17:24] VITALS: BP 150/88; PULSE 78; O2SAT 98
--- NOTE | 2018-05-24 22:40 | CARD ---
APPROVED REPORT Date of service: 05/24/2018 EKG Measurement Heart [id number] MA 178P-4 [id number] <Conclusion> Normal sinus rhythm ST elevation, probably due to early repolarization Borderline ECG
== END 2018-05-24 17:24 | disposition home or self-care (01) ==
LOC: H.ER 11:29
DX: M79.89 Other specified soft tissue disorders (principal); R10.13 Epigastric pain; K44.9 Diaphragmatic hernia without obstruction or gangrene; K76.0 Fatty (change of) liver, not elsewhere classified; I10 Essential (primary) hypertension
CPT/HCPCS: 73590; 74177; 80053; 83690; 83880; 84484; 85025; 93005; 93971; 96374; 96375; 99284; J1885; Q9967